=== PATIENT | female | born 1965 | race Two or more races ===

== ENCOUNTER 2025-07-07 06:00 | Day surgery (SDC) | payer OTHER ==
[2025-07-07] MEDS ORDERED: fentaNYL CITRATE 50 MCG/ML AMPUL IV PUSH ONE (12:00)
[2025-07-07] MEDS ORDERED: MIDAZOLAM HCL 2 MG/2 ML VIAL IV ONE (12:00)
[2025-07-07] MEDS ORDERED: DIPHENHYDRAMINE HCL 50 MG/ML VIAL 1ML IV ONE (12:00)
== END 2025-07-07 13:00 | disposition home or self-care (01) ==
LOC: AMB-ENDOS 06:00
PROVIDERS: ATTEND Internal Medicine
DX: D12.0 Benign neoplasm of cecum (principal); D12.2 Benign neoplasm of ascending colon; D12.4 Benign neoplasm of descending colon; K63.5 Polyp of colon; Z12.11 Encounter for screening for malignant neoplasm of colon